=== PATIENT | male | born 2000 | race Caucasian/White ===

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

== ENCOUNTER 2024-01-25 14:19 | Day surgery (SDC) | payer BC ==
[2024-01-25] MEDS ORDERED: Piperacillin/Tazobactam 4.5 GM in Sodium Chloride 0.9% 100 ML IV ONE ×2 (15:34→17:00)
[2024-01-25] MEDS: Lactated Ringers 1,000 ML IV ONE (16:44)
[2024-01-25] MEDS ORDERED: fentaNYL 100 MCG/2 ML SDV ONE ×2 (18:32→20:51)
[2024-01-25] MEDS ORDERED: Midazolam 1 MG/ML 2 ML SDV ONE (18:32)
[2024-01-25] MEDS ORDERED: Propofol 200 MG/20 ML SDV ONE (18:32)
[2024-01-25] MEDS ORDERED: Lidocaine 1% 5 ML VIAL ONE (18:33)
[2024-01-25] MEDS ORDERED: Esmolol 100 MG/10 ML SDV ONE (18:33)
[2024-01-25] MEDS ORDERED: Sugammadex Sodium 200 MG/2 ML VIAL IV ONE (18:33)
[2024-01-25] MEDS ORDERED: Rocuronium 50 MG/5 ML Vial ONE (18:33)
[2024-01-25] MEDS ORDERED: Ketorolac 30 MG/ML SDV ONE (18:33)
[2024-01-25] MEDS ORDERED: ceFAZolin 2 GM Vial ONE (18:33)
[2024-01-25] MEDS ORDERED: dexmedeTOMIDine HCl 200 MCG/2 ML SDV ONE (18:33)
[2024-01-25] MEDS ORDERED: Dexamethasone 4 MG/ML 5 ML MDV ONE (18:33)
[2024-01-25] MEDS ORDERED: fentaNYL 100 MCG/2 ML SDV IVPUSH PRN (19:34)
[2024-01-25] MEDS ORDERED: Ondansetron 4 MG/2 ML SDV IVPUSH PRN (19:34)
[2024-01-25] MEDS ORDERED: Sodium Chloride 0.9% 10 ML Syringe FLUSH PRN (19:34)
[2024-01-25] MEDS ORDERED: HYDROmorphone 0.5 MG/0.5 ML Syringe IVPUSH PRN (19:34)
[2024-01-25] MEDS ORDERED: Lactated Ringers 1,000 ML IV SCH (19:45)
[2024-01-25] MEDS ORDERED: ePHEDrine 50 MG/ML SDV ONE (20:24)
[2024-01-25] MEDS ORDERED: Ondansetron 4 MG/2 ML SDV ONE (20:55)
[2024-01-25] MEDS ORDERED: Lactated Ringers 1,000 ML IV ONE ×2 (21:00→22:00)
[2024-01-25] MEDS ORDERED: Sodium Chloride 0.9% 100 ML IV ONE (21:00)
[2024-01-25] MEDS ORDERED: Sodium Chloride 0.9% 10 ML Syringe FLUSH SCH (21:00)
[2024-01-25] MEDS ORDERED: Piperacillin/Tazobactam 4.5 GM Vial ONE (21:30)
[2024-01-25] MEDS: Lidocaine 1% 20 ML MDV ONE (22:02)
[2024-01-25] MEDS ORDERED: Piperacillin/Tazobactam 4.5 GM in Sodium Chloride 0.9% 100 ML IV SCH (23:30)
[2024-01-26 00:37] VITALS: BP 112/63; PULSE 60
== END 2024-01-26 00:28 | disposition home or self-care (01) ==
LOC: JD.ED 14:19 → JD.SDS 15:14
PROVIDERS: ATTEND Student in an Organized Health Care Education/Training Program
DX: K35.33 Acute appendicitis with perforation, localized peritonitis, and gangrene, with abscess (principal); Z91.030 Bee allergy status; Z79.899 Other long term (current) drug therapy
CPT/HCPCS: 44970; J0690; J1100; J1885; J2250; J2405; J2543; J2704; J3010; J3490; J7120; 00840